=== PATIENT | male | born 1955 | race Two or more races ===

== ENCOUNTER 2018-08-14 15:02 | Emergency (ER) | payer OTHER ==
[~2018-08-14] VITALS: Ht 190.5 cm; Wt 104.3 kg
[2018-08-14] MEDS ORDERED: PNEU16DI2 (15:36)
[2018-08-14] MEDS ORDERED: TAMS0.4C (15:36)
[2018-08-14] MEDS ORDERED: HYDRALAZINE HCL25 MG (15:38)
[2018-08-14] MEDS ORDERED: LOSARTAN POTAS100 MG (15:38)
[2018-08-14] MEDS ORDERED: SIMVASTATIN20 MG (15:38)
[2018-08-14] MEDS ORDERED: CATAFLAN (15:39)
[2018-08-14] MEDS ORDERED: NORVASC10 MG (15:39)
== END 2018-08-14 23:23 | disposition home or self-care (01) ==
LOC: ER 15:02
DX: K57.30 Diverticulosis of large intestine without perforation or abscess without bleeding (principal); R10.32 Left lower quadrant pain